=== PATIENT | male | born 1950 | race Caucasian/White ===

== ENCOUNTER 2017-03-07 16:46 | Emergency (ER) | payer OTHER ==
[~2017-03-07] VITALS: Ht 175.3 cm; Wt 96.2 kg
--- NOTE | 2017-03-07 18:03 | ED SKIN/ALLERGY COMPLAINT ---
History of Present Illness General Chief Complaint: General Adult Stated Complaint: PT SIB RED LINE GOING UP THE LEFT ARM Source: patient, old records Exam Limitations: no limitations Vital Signs & Intake/Output Vital Signs & Intake/Output Vital Signs Date Time Temp Pulse Resp B/P Pulse O2 O2 Flow FiO2 Ox Delivery Rate 03/07 1903 97.5 53 18 127/71 100 03/07 1857 Room Air 03/07 1739 97.9 60 18 124/84 97 Room Air Allergies Coded Allergies: bacitracin (Mild, INCREASES INFECTION 03/07/17) neomycin (From NEOSPORIN ([id number])) (Mild, MAKES INFECTION WORSE 03/07/17) polymyxin B (From NEOSPORIN ([id number])) (Mild, MAKES INFECTION WORSE ) MDX - Penicillin (PENICILLIN) (rash 01/07/15) Uncoded Allergies: latex powder (01/07/15) Reconcile Medications Clindamycin HCl 300 MG CAPSULE 1 CAP PO TID cellulitis Triage Note: RECEIVED 66 YO MALE SENT BY DR HOPE OFFICE FOR RED LINE GOING UP LEFT ARM, R/O CELLULITIS. PT REPORTS NOTICED IT THIS AM. SOMETHING FELL ON LEFT HAND YESTERDAY, ONLY INJURY KNOWN TO PT. Triage Nurses Notes Reviewed? yes Onset: Abrupt Duration: day(s): (1), constant Timing: recent history Severity: mild Severity Numbers: 4 Location: extremities No Modifying Factors: none Associated Symptoms: denies HPI: 66-year-old male with no medical history previously was diagnosed with diabetes hypertension hours no longer medication presents now sent in by his primary care physician complaining of a one-day history of streaking up his left arm since last night when he states he accidentally hit his hand on a metal bar that he was throwing out. Patient states that he has had some dry skin on his hands are cracked recently and states that the streaking begins at that site and goes up to his mid upper arm. He denies any associated pain fever chills. Denies any discharge from the cracked skin no chest pain shortness of breath abdominal pain. Past History Travel History Traveled to [place] past 21 day No Medical History Any Pertinent Medical History? see below for history Neurological: NONE EENT: NONE Cardiovascular: HTN - WEIGHT CONTROLLED Respiratory: NONE Gastrointestinal: NONE Hepatic: NONE Renal: NONE Musculoskeletal: NONE Psychiatric: NONE Endocrine: diabetes, WEIGHT CONTROLLED. Blood Disorders: NONE Cancer(s): NONE Surgical History Surgical History: non-contributory Psychosocial History What is your primary language [place] Citizen Tobacco Use: Quit >30 days ago Family History Hx Contributory? No Review of Systems Review of Systems Constitutional: Reports: see HPI. All Other Systems: Reviewed and Negative Comments Review of systems: See HPI, All other systems negative. Constitutional, no chills no fever, no malaise HEENT: No visual changes no sore throat no congestion Cardiovascular: No chest pain , no palpitation , Skin, see HPI Respiratory: No dyspnea no cough no sputum GI: No nausea no vomiting, no diarrhea, : No dysuria No hematuria, Muscle skeletal: No joint pain, no back pain, no neck pain, Neurologic: No numbness no headache Psych: No stress Heme/endocrine: No bruising no bleeding Immunology: No lymphadenopathy, Physical Exam Physical Exam General Appearance: well developed/nourished, alert, awake Comments: Well-developed well-nourished person in no acute distress HEENT: Normal EENT exam; PERRL, EOMI. HEAD is atraumatic. moist mucous membranes. Neck: Supple, no lymphadenopathy, normal range of motion Back: Nontender, . Full range of motion Cardiovascular: Regular rate and rhythms no murmurs rubs Respiratory: No respiratory distress. Patient speaking in full complete sentences. Breath sounds clear to auscultation bilaterally: NO W/R/R Abdomen: Soft, nontender nondistended, Extremity: No edema, full range of motion of extremities, normal and equal pulses bilaterally, 5 out of 5 strength noted to bilateral upper and lower extremities Neuro: Alert oriented x3, motor sensory normal. There were no obvious focal neurologic abnormalities. Skin: There is streaking up the left volar aspect of the left arm emanating from the first inter-webspace tracking along the lateral aspect of the mid bicep, nontender no crepitus there is no other rash noted to the exposed skin, skin is warm and dry. Psych: Mood and affect is normal, memory and judgment is normal. Progress Differential Diagnosis: abscess/cellulitis, allergic reaction, contact dermatitis, erythema multiforme, shingles, urticaria Plan of Care: Orders Procedure Date/time Status BLOOD CULTURE 03/07 1810 Active CBC WITHOUT DIFFERENTIAL 03/07 1810 Complete BASIC METABOLIC PANEL 03/07 1810 Complete Laboratory Tests 03/07/171821: Anion Gap 12, Estimated GFR > 60, BUN/Creatinine Ratio 20.0, Glucose 80, Calcium 9.6, CBC w Diff NO MAN DIFF REQ, RBC 4.70, MCV 83.8, MCH 29.3, RDW 13.3, MPV 6.3 L, Gran % 68.6, Lymphocytes % 19.2 L, Monocytes % 8.0, Eosinophils % 3.8, Basophils % 0.4, Absolute Granulocytes 4.1, Absolute Lymphocytes 1.2, Absolute Monocytes 0.5, Absolute Eosinophils 0.2, Absolute Basophils 0, PUBS MCHC 35.0 Microbiology 03/07 1840 BLOOD: Blood Culture - RECD 03/07 1822 BLOOD: Blood Culture - RECD Labs ordered old records patient with clindamycin IV I discussed with the patient at length all of their results. I had an extensive conversation regarding need for close follow up with their primary care physician in 48 hours as well as return precautions. Advised him if he is unable we seen by his primary care physician by Sunday to return here for wound check, advised return anytime sooner if his symptoms worsen he develops fever chills or any other concerns I answered all of their questions, they feel comfortable with the plan and follow-up care. I discussed the medications that they will receive with the patient. I gave them signs and symptoms that could indicate an adverse reaction. I have advised them to limit their activities until they can see how they respond to the medication. (ROSITA ECHEVARRIA,YOLANDE) Departure Departure Time of Disposition: 1919 Disposition: HOME OR SELF CARE Condition: Stable Clinical Impression Primary Impression: Cellulitis Referrals: MONTY RENEE,MATTIE (PCP/Family) Additional Instructions: Follow-up with your primary care physician tomorrow to see if you can be seen sooner than your previously scheduled appointment. Clindamycin as directed. Return immediately if you're unable to be seen by her primary care physician, or if you develop worsening redness warmth or streaking up her arm fever chills or any other concerns. This prescription was sent to your pharmacy. Departure Forms: Customer Survey General Discharge Information Prescriptions: Current Visit Scripts Clindamycin HCl 1 CAP PO TID #30 CAP
[2017-03-07 18:34] LABS: ABSOLUTE BASOPHIL COUNT 0 /CUMM (0.0-0.2); ABSOLUTE EOSINOPHIL COUNT 0.2 /CUMM (0.0-0.7); ABSOLUTE GRANULOCYTE CT 4.1 /CUMM (1.4-6.5); ABSOLUTE LYMPH COUNT 1.2 /CUMM (1.2-3.4); ABSOLUTE MONOCYTE COUNT 0.5 /CUMM (0.10-0.60); BASOPHIL % 0.4 % (0.0-2.0); EOSINOPHIL % 3.8 % (0-5); GRANULOCYTE % 68.6 % (42.2-75.2); HEMATOCRIT 39.3 % (42-52); MEAN CORPUSCULAR HGB 29.3 PG (27.0-31.0); MEAN CORPUSCULAR VOLUME 83.8 FL (80.0-94.0); MEAN PLATELET VOLUME 6.3 FL (7.4-10.4); PLATELET COUNT 141 /CUMM (130-400); RBC DISTRIBUTION WIDTH 13.3 % (11.5-14.5)
[2017-03-07 19:03] VITALS: BP 127/71
[2017-03-07] MEDS ORDERED: CLINDAMYCIN HC300 M1 PO (19:30)
== END 2017-03-07 19:40 ==
LOC: ERH 16:46
PROVIDERS: Physician Assistant Medical
DX: L03.114 Cellulitis of left upper limb (principal)
CPT/HCPCS: 87040; 96374